=== PATIENT | female | born 1975 | race Caucasian/White ===

== ENCOUNTER → 2017-11-13 | Outpatient (CLI) | payer OTHER ==
[~2017-11-13] MED LIST: CLOB-65 EXT; FLUT0.0529; TRMCR2515 TD
--- NOTE | 2017-11-13 13:51 | DIAGNOSTIC IMAGING REPORT ---
R VENOUS DOPP LOWER EXT UNILAT CLINICAL HISTORY: R LEG EDEMA,R/O DVT pain. Edema. TECHNIQUE: Venous Doppler COMPARISON STUDY: None FINDINGS: Findings of mild chronic superficial thrombophlebitis. The deep venous structures are patent. Compressibility and augmentation characteristics are unremarkable. IMPRESSION: 1. Study is negative for deep venous thrombosis. 2. 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 It may contain grammatical, syntax or spelling errors. Electronically signed by: Atif Milan M.D. 11/13/2017 1:50 PM Dictated Date/Time: 11/13/2017 1:48 PM
[2017-11-13 15:12] LABS: POTASSIUM 3.6 mmol/L (3.5-5.1)
== END | disposition home or self-care (01) ==
LOC: C.ULTR 12:44
PROVIDERS: ATTEND Physician Assistant
DX: I80.01 Phlebitis and thrombophlebitis of superficial vessels of right lower extremity (principal); R60.0 Localized edema

== ENCOUNTER 2017-12-02 00:47 | Observation (INO) | payer OTHER ==
[~2017-12-02] VITALS: Ht 162.6 cm; Wt 108.6 kg
[2017-12-02] MEDS ORDERED: SODIUM CHLORIDE 0.9% 1000ML 1,000 ML, SODIUM CHLORIDE 0.9% 1000ML 1,000 ML IV ONE (01:15)
[2017-12-02] MEDS ORDERED: OPTIRAY 320 IV PRN (01:30)
[2017-12-02 01:33] LABS: BASO % 0.6 %; BASO ABS # 0.06 K/uL (0-0.2); EOS % 1.3 %; EOS ABS # 0.12 K/uL (0-0.5); HEMATOCRIT 39.1 % (37-47); HEMOGLOBIN 13.8 g/dL (12.0-16.0); IG# 0.02 K/uL (0.00-0.02); LYMPH % 38.9 %; LYMPH ABS # 3.61 K/uL (1.2-3.4); MEAN CELL VOLUME 85.2 fL (80-100); MEAN CORPUSCULAR HEMOGLOBIN 30.1 pg (25-34); MEAN CORPUSCULAR HGB CONC 35.3 g/dl (32-36); MEAN PLATELET VOLUME 11.1 fL (7.4-10.4); MONO ABS # 0.65 K/uL (0.11-0.59); NEUT ABS # 4.81 K/uL (1.4-6.5); PLATELET COUNT 273 K/uL (130-400); RED CELL DISTRIBUTION WIDTH CV 13.3 % (11.5-14.5); RED CELL DISTRIBUTION WIDTH SD 41.3 fL (36.4-46.3); WHITE BLOOD COUNT 9.27 K/uL (4.8-10.8)
[2017-12-02 01:45] LABS: PTT PATIENT 24.7 SECONDS (21.0-31.0)
[2017-12-02 02:02] LABS: ALBUMIN 3.9 gm/dl (3.4-5.0); CALCIUM 8.8 mg/dl (8.5-10.1); CREATININE 0.79 mg/dl (0.60-1.20); POTASSIUM 3.3 mmol/L (3.5-5.1); TOTAL PROTEIN 7.7 gm/dl (6.4-8.2)
[2017-12-02] MEDS ORDERED: POTASSIUM CHLR 10 MEQ / WTR 100 ML IV STA (02:45)
[2017-12-02] MEDS ORDERED: POTASSIUM ACETATE INJ 10 MEQ in SODIUM CHLORIDE 0.9% 100ML 100 ML IV ONE (02:45)
[2017-12-02] MEDS ORDERED: POTASSIUM CHLORIDE 20 MEQ TABCR PO STA (03:28)
[2017-12-02] MEDS ORDERED: TRAMADOL HCL 50 MG TAB PO PRN (05:30)
[2017-12-02] MEDS ORDERED: LORAZEPAM 2 MG/ML 1 ML VIAL IV PRN (05:30)
[2017-12-02] MEDS ORDERED: MoRPHine SULFATE 4 MG/ML 1 ML CARP\\VIAL IV PRN (05:30)
[2017-12-02] MEDS ORDERED: PROCHLORPERAZINE INJ 5 MG in SYRINGE 4 ML IV PRN (05:30)
[2017-12-02 06:08] VITALS: BP 122/69; PULSE 87; TEMP 36.8; O2SAT 98; Ht 162.6 cm; Wt 108.6 kg
[2017-12-02] MEDS ORDERED: IV FLUIDS COMPLETED PRN (06:15)
--- NOTE | 2017-12-02 06:22 | HISTORY & PHYSICAL EXAMINATION ---
DATE OF ADMISSION: 12/02/2017 PRIMARY CARE PHYSICIAN: Dr. Kerr. CHIEF COMPLAINT: Chest discomfort. HISTORY OF PRESENT ILLNESS: History obtained from patient and records. Medical history significant for cervical dysplasia as per records and migraine. 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 She was not feeling well while driving, palpitations, some chest discomfort described as burning, cannot take a deep breath. No cough. Denies excessive coffee intake. Bigeminy noted on the monitor at the ER. Patient given extra potassium for hypokalemia. About to send home when she had another distressing episode coinciding with bigeminy on the monitor. MEDICAL HISTORY: As above. February 2017 stress test negative for evidence of ischemia, EF 60%. SURGICAL HISTORY: Appendectomy, cholecystectomy, tonsillectomy, vaginal sling procedure. MEDICATIONS: Home medications are none. ALLERGIES: No drug allergies. FAMILY HISTORY: Hypertension. PERSONAL/SOCIAL HISTORY: Nonsmoker. No chronic intake of alcoholic beverages. RN. REVIEW OF SYSTEMS: As per HPI, all 10 systems reviewed. All other ROS negative. PHYSICAL EXAMINATION: VITAL SIGNS: Blood pressure was noted to be 135/102, pulse rate 87, RR 18, temperature 36.8, saturations 100% on room air. GENERAL: She is slightly anxious and obese, in no acute respiratory distress. SKIN: Normal color, warm. HEENT: Velva palpebral conjunctivae. No ptosis. Dry oral mucosa. NECK: Short, supple. CHEST: Clear to auscultation. No tenderness. HEART: Regular rate and rhythm, no murmur. ABDOMEN: Some distention, nontender. EXTREMITIES: Minimal LE edema, no tenderness. No other gross deformities. NEUROLOGIC: Coherent, no facial asymmetry , no gross focality. LABORATORY DATA: Hemoglobin 13.8, hematocrit 39.4, white cell count 9.27, platelets 273. Sodium 138, potassium 3.2, chloride 105, CO2 of 25, BUN 12, creatinine 0.7, glucose 100. Troponin noted to be x2 negative. UA Trace ketones. CT of chest initial study negative clot. EKG as per my interpretation, normal sinus rhythm, PVCs.1. ASSESSMENT: Palpitations secondary to symptomatic PVCs "Burning" chest discomfort ? GERD Hypokalemia contributory to arrhythmia. PLAN: Observation PCU low dose beta constanza to suppress ectopy Replace potassium. 2D echo. Cardio consult for symptomatic PVCs. PPI trial for possible GERD DVT Prophylaxis: Lovenox subcu. Full code. MTDD
[2017-12-02] MEDS ORDERED: NSS + 20MEQ KCL 1000ML 1,000 ML IV ONE (06:30)
--- NOTE | 2017-12-02 07:05 | DIAGNOSTIC IMAGING REPORT ---
CT ANGIOGRAPHY OF THE CHEST, PULMONARY EMBOLUS PROTOCOL CLINICAL HISTORY: Chest pain. Palpitations. Shortness of breath. COMPARISON STUDY: Chest radiograph May 27, 2013. TECHNIQUE: Following IV administration of 93 mL of Optiray-320, helical axial images of the chest were obtained utilizing the pulmonary embolus protocol. Maximal intensity projections and sagittal and coronal reformats were viewed on an independent 3D workstation. IV contrast was administered without complication. A dose lowering technique was utilized adhering to the principles of ALARA. CT DOSE: 618.77 mGy.cm FINDINGS: No pulmonary emboli are identified. There is no evidence of thoracic aortic dissection. The size of the heart is normal. There is no pericardial effusion. No enlarged axillary, mediastinal or hilar lymph nodes are present. Central airways are patent. There is no consolidation to suggest pneumonia. No pneumothorax or pleural effusion is noted. Bony thorax is unremarkable. Gallbladder is surgically absent. IMPRESSION: 1. No pulmonary emboli identified. 2. No acute intrathoracic findings. Electronically signed by: Anthony Camacho M.D. 12/02/2017 7:04 AM Dictated Date/Time: 12/02/2017 6:59 AM
--- NOTE | 2017-12-02 07:11 | DIAGNOSTIC IMAGING REPORT ---
ULTRASOUND RIGHT LOWER EXTREMITY VENOUS CLINICAL HISTORY: Right leg swelling. COMPARISON STUDY: Right lower extremity venous ultrasound dated 11/13/2017. TECHNIQUE: Real-time, grayscale, and color Doppler sonography of the deep veins of the right lower extremity was performed from the inguinal crease to the calf. Compression and augmentation were utilized. FINDINGS: There is no sonographic evidence of deep venous thrombosis identified in the right lower extremity. The common femoral, superficial femoral, and popliteal veins are patent and normally compressible. Trace chronic superficial venous thrombus is again seen in the greater saphenous vein. The greater saphenous vein and the profunda femoris vein at the junction with the common femoral vein are otherwise clear. The visualized calf veins are patent. IMPRESSION: 1. There is no sonographic evidence of deep venous thrombosis identified in the right lower extremity. 2. Trace chronic superficial venous thrombus within the greater saphenous vein is unchanged from previous. Electronically signed by: Yovani Christianson M.D. 12/02/2017 7:10 AM Dictated Date/Time: 12/02/2017 7:08 AM
[2017-12-02 07:30] VITALS: BP 111/68; PULSE 80; TEMP 37; O2SAT 97
[2017-12-02] MEDS ORDERED: PANTOprazole SOD 40 MG TAB PO SCH (09:00)
[2017-12-02] MEDS ORDERED: ENOXAPARIN 40 MG/0.4 ML SYR SC SCH (09:00)
[2017-12-02] MEDS ORDERED: PERFLUTREN LIPID MICROSPHERE (DEFINITY) IV ONE (09:31)
--- NOTE | 2017-12-02 10:07 | Cardiology Consultation ---
Cardiology Consultation Date of Consultation: December 02, 2017 Requesting Physician: Dr. Awad Attending Survey Workers Supervisor: Dr. 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 She has no significant past medical history and takes no medications on a regular basis. Last night when driving herself to work she noted sudden onset palpitations with associated SOB and warm flushing sensation within her chest. When she got to work and walked across the parking lot, she noted unusual SOB/dyspnea. No chest pain reported. She started her shift but continued to feel "off" and had trouble catching her breath. She felt her pulse was irregular and mildly tachycardic. Due to ongoing symptoms and feeling poorly, she was evaluated by coworkers in the ER. EKG revealed NSR with PVC's. 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 Labs completed which demonstrated mild hypothyroidism (new), and hypokalemia. Potassium was supplemented. She was started on low dose atenolol to suppress PVC 's. Cardiac markers were negative. She underwent CT scan of the chest which was negative for PE. She recently was evaluated by PCP office at [facility] for worsening LE edema. Diagnosed with superficial thrombophlebitis. Taking NSAIDS and wearing compression stockings which has aided her symptoms. She denies history of palpitations, arrhythmias, murmur, or history of cardiac issues. She had a stress echo for atypical chest pain in 2014 which was negative for inducible ischemia. At time of consult, patient resting in bed comfortably. Currently asymptomatic. No PVC's on vegetable farmworker currently. Potassium infusing. No chest pain or SOB. No dizziness, syncope or near syncope. No orthopnea, PND or edema. Compression stockings in place. 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 No recent exertional chest pain or SOB noted. No excessive caffeine intake. No tobacco abuse. Rare alcohol use. (Awa Pinedo PA-C) Past Medical/Surgical History Problem List: Medical Problems: 1. Migraines 2. Obesity Surgical History: 1. Appendectomy 2. tubal ligation 3. lap ephraim 4. 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 Head: The patient denies headache and prior head trauma. Cardiovascular: The patient denies chest pain or chest discomfort, dyspnea on exertion, palpitations, PND, orthopnea, edema, spontaneous shortness of breath, syncope and near syncope. Pulmonary: The patient denies cough, wheeze, pleurisy, hemoptysis, sputum, and excessive snoring. Gastrointestinal: The patient denies nausea, vomiting, diarrhea, constipation, bloating, hematemesis, hematochezia, and abdominal pain. Skin: The patient denies diaphoresis and rash. Musculoskeletal: The patient denies joint pain, joint swelling, myalgia, back pain, neck pain and prior injuries. Neurological: The patient denies prior stroke and seizures (Awa Pinedo PA-C) Allergies Coded Allergies: No Known Allergies (Verified , 12/02/17) Medications Reported Home Medications Medications Dose Route/Sig Max Daily Dose Days Date Category No Active Prescriptions or Reported Medications Rx (Awa Pinedo PA-C) Physical Exam Vital Signs (Last 8hrs): Last 8 Hrs Date Time Temp Pulse Resp B/P (MAP) Pulse Ox O2 Delivery O2 Flow Rate FiO2 12/02/17 07:30 Room Air 12/02/17 06:08 36.8 87 16 122/69 98 Room Air 12/02/17 05:37 85 18 129/50 100 Room Air 12/02/17 05:01 80 18 119/74 100 Room Air 12/02/17 04:56 80 12/02/17 03:57 77 18 118/72 99 Room Air 12/02/17 03:03 76 21 110/70 100 Room Air 12/02/17 02:39 71 18 118/67 12/02/17 02:01 88 17 100/69 99 Room Air 12/02/17 01:31 75 24 118/76 100 Room Air 12/02/17 01:08 78 12/02/17 01:00 98 16 126/81 100 Room Air 12/02/17 00:52 88 12/02/17 00:50 36.8 87 18 135/102 100 Room Air 12/02/17 00:50 Room Air 12/02/17 00:48 77 General Appearance: Alert and Oriented x3. NAD. Head: Normocephalic Atraumatic. Eyes: PERRLA, EOMI, conjunctiva and sclera clear Neck: Supple. No carotid bruits noted. No JVD. No HJD. Respiratory: Breath sounds clear to auscultation bilaterally. No w/r/r. Cardiovascular: Reg rate and rhythm. S1 and S2 noted. No murmurs, rubs, gallops. PMI non displace. Abdomen: Normal bowel sounds, soft nontender. no abdominal bruits. Extremities: No edema, no clubbing or cyanosis. distal pulses 2/4 bilaterally. Neuro: No focal deficits. Psychiatric: Normal affect. (Awa Pinedo, JOSELINE) Data Last 24 Hours Test 12/02/17 01:15 12/02/17 01:27 12/02/17 01:30 12/02/17 03:01 White Blood Count 9.27 K/uL Red Blood Count 4.59 M/uL Hemoglobin 13.8 g/dL Hematocrit 39.1 % Mean Corpuscular Volume 85.2 fL Mean Corpuscular Hemoglobin 30.1 pg Mean Corpuscular Hemoglobin Concent 35.3 g/dl Platelet Count 273 K/uL Mean Platelet Volume 11.1 fL Neutrophils (%) (Auto) 52.0 % Lymphocytes (%) (Auto) 38.9 % Monocytes (%) (Auto) 7.0 % Eosinophils (%) (Auto) 1.3 % Basophils (%) (Auto) 0.6 % Neutrophils # (Auto) 4.81 K/uL Lymphocytes # (Auto) 3.61 K/uL Monocytes # (Auto) 0.65 K/uL Eosinophils # (Auto) 0.12 K/uL Basophils # (Auto) 0.06 K/uL RDW Standard Deviation 41.3 fL RDW Coefficient of Variation 13.3 % Immature Granulocyte % (Auto) 0.2 % Immature Granulocyte # (Auto) 0.02 K/uL Prothrombin Time 10.4 SECONDS Prothromb Time International Ratio 1.0 Activated Partial Thromboplast Time 24.7 SECONDS Partial Thromboplastin Ratio 1.0 Sodium Level 138 mmol/L Potassium Level 3.3 mmol/L Chloride Level 105 mmol/L Carbon Dioxide Level 25 mmol/L Anion Gap 8.0 mmol/L Blood Urea Nitrogen 12 mg/dl Creatinine 0.79 mg/dl Est Creatinine Clear Calc Drug Dose 113.2 ml/min Estimated GFR () 108.5 Estimated GFR (Non- 93.6 BUN/Creatinine Ratio 15.5 Random Glucose 100 mg/dl Calcium Level 8.8 mg/dl Magnesium Level 2.0 mg/dl Total Bilirubin 0.3 mg/dl Aspartate Amino Transf (AST/SGOT) 19 U/L Alanine Aminotransferase (ALT/SGPT) 41 U/L Alkaline Phosphatase 74 U/L Total Protein 7.7 gm/dl Albumin 3.9 gm/dl Globulin 3.8 gm/dl Albumin/Globulin Ratio 1.0 Lipase 109 U/L Thyroid Stimulating Hormone (TSH) 6.350 uIu/ml Free Thyroxine 1.36 ng/dl Free Triiodothyronine 3.52 pg/ml Lyme Disease IgG Antibody NEG Lyme Disease IgM Antibody NEG Bedside Troponin I < 0.030 ng/ml < 0.030 ng/ml Urine Color YELLOW Urine Appearance CLEAR Urine pH 6.0 Urine Specific [place] 1.015 Urine Protein NEG Urine Glucose (UA) NEG Urine Ketones TRACE Urine Occult Blood NEG Urine Nitrite NEG Urine Bilirubin NEG Urine Urobilinogen NEG Urine Leukocyte Esterase NEG Test 12/02/17 05:20 Urine Test NEG Imaging: Chest CT on admission: IMPRESSION: 1. No pulmonary emboli identified. 2. No acute intrathoracic findings. EKG On arrival to ER Sinus rhythm with sinus arrhythmia with occasional Premature ventricular complexes Possible Left atrial enlargement Low voltage QRS Borderline ECG When compared with ECG of 29-MAY-2013 04:54, Premature ventricular complexes are now Present Repeat EKG demonstrated Sinus rhythm with sinus arrhythmia with occasional Premature ventricular complexes. Low Voltage QRS. No significant change from previous Telemetry reviewed: NSR with occ PVC and runs of ventricular bigeminy. Prior Data: Exercise Stress Echo report reviewed, dated 02/2015: The primary indication after review was deemed appropriate and the examination was performed. The stress echo is negative for inducible ischemia. No arrhythmias. Hypertensive BP response to exercise. Below average exercise tolerance. At rest, normal LV chamber size and wall thickness. Normal LV systolic function without regional wall motion abnormality, EF 60-65%. Normal diastolic function. No significant valvular pathology. (Awa Pinedo PA-C) Assessment & Plan 1. Symptomatic PVC's 2. Hypokalemia 3. Hypothyroidism PLAN: Continue low dose Atenolol. Supplement potassium. Recheck later today May need to initiate thyroid supplementation Echo ordered to r/o structural heart disease. Pathophysiology, causes, and treatment for PVC's discussed with patient. She is in agreement to this plan. Case to be discussed with Dr. Robles. Further recommendations pending echo and response to beta constanza, potassium (Awa Pinedo PA-C) CARDIOLOGY ATTENDING ADDENDUM: The patient was seen and personally examined. Agree with Awa Pinedo PA-C's findings and plans as documented above with additions as noted below. S: Patient feeling improved. No recent PVCs thus far today on telemetry. Exam: Last Vital Signs Documentation Date Time Temp Pulse Resp B/P (MAP) Pulse Ox O2 Delivery O2 Flow Rate FiO2 12/02/17 07:30 Room Air 12/02/17 07:30 37.0 80 20 111/68 (82) 97 Regular rhythm, no murmurs. Ext: no edema Impression: Symptomatic PVCs, ventricular bigeminy, no structural heart disease on echo with normal LVEF , no valvular heart disease Mild increase in TSH, likely does not warrant medication therapy Mild hypokalemia. Plan: Likely benign PVCs from standpoint of low risk of sudden . Recommend atenolol for symptomatic relief. Repeat K level. Bases on repeat will determine if she need supplementation. Anticipate discharge after potassium lab results are back. (Tommy Robles,D.O.)
--- NOTE | 2017-12-02 10:51 | ECHOCARDIOGRAM REPORT ---
*NOTICE TO RECEIVING DEMOCRAT AGENCY This information is strictly Confidential and protected under [place] law. [place] law prohibits you from making any further disclosure of this information unless further disclosure is expressly permitted by the written consent of the person to whom it pertains or is authorized by law. A general authorization for the release of medical or other information is not sufficient for this purpose. Hospital accepts no responsibility if the information is made available to any other person, INCLUDING THE PATIENT. Interpretation Summary * Name: CASSY TATUM Study Date: 12/02/2017 09:01 AM * Patient Location: [facility] [place]\S\E106\S\1 * : 1975 (M/d/yyyy) Gender: Female Height: 64 in * Age: 42 yrs Ethnicity: CA Weight: 236 lb * Ordering Physician: Miguel Awad * Referring Physician: Self, Referred * Performed By: Mary Hess RDCS * * Reason For Study: Palpitations * BSA: 2.1 m2 * -- Conclusions -- * The left ventricular wall motion is normal. * Left ventricular systolic function is normal. * The qualitative left ventricualr ejection fraction=55% * There is no singificant valvular heart disease. Procedure Details * A complete two-dimensional transthoracic echocardiogram was performed (2D, M-mode, Doppler and color flow Doppler). * The study was technically difficult. * The study was technically difficult, but visualization was adequate with the administration of Definity ultrasound contrast. * There were technical limitations due to patient'sbody habitus * A contrast injection of Definity was performed to improve assessment of LV function. * Contrast was injected into an intravenous site in the left arm. * One vial of Definity ultrasound contrast was diluted in normal saline to a total volume of 10 ml. A total of '2' ml of solution was administered during imaging. * Lot # [id number] of Definity utilized for procedure. * Expiration date 1Apr19. * The attending nurse who injected the contrast agent was QUANG Galvan. Left Ventricle * The left ventricle is normal in size. * There is normal left ventricular wall thickness. * Left ventricular systolic function is normal. * The qualitative left ventricualr ejection fraction=55% * The left ventricular wall motion is normal. Right Ventricle * The right ventricle is normal size. * The right ventricular systolic function is normal as assessed by tricuspid annular plane systolic excursion (TAPSE) (normal >1.5 cm). Atria * The left atrial size is normal. * Right atrial size is normal. * There is no evidence of atrial septal defect, but resolution does not allow assessment for a patent foramen ovale. Mitral Valve * The mitral valve is normal. * There is no mitral valve stenosis. * Significant mitral regurgitation is absent. Tricuspid Valve * The tricuspid valve is normal. * There is no tricuspid stenosis. * Significant tricuspid regurgitation is absent. Aortic Valve * The aortic valve is trileaflet. * Aortic stenosis is absent. * There is no significant aortic regurgitation. Pulmonic Valve * The pulmonary valve is not well seen, but the Doppler examination is normal without significant regurgitation or stenosis. Great Vessels * The aortic root and proximal ascending aorta are normal sized. Pericardium/Pleural * There is no pericardial effusion. Great Vessels * Normal inferior vena cava diameter and respiratory variation suggests normal central venous pressure. Left Ventricular Diastolic Function * Grade I diastolic dysfunction, (abnormal relaxation pattern). MMode 2D Measurements and Calculations IVSd 0.84 cm IVSs 0.90 cm LVIDd 5.7 cm LVIDs 3.9 cm LVPWd 0.79 cm LVPWs 1.2 cm IVS/LVPW 1.1 FS 31.6 % EDV(Teich) 163.2 ml ESV(Teich) 67.3 ml EF(Teich) 58.8 % EDV(cubed) 190.0 ml ESV(cubed) 60.8 ml EF(cubed) 68.0 % % IVS thick 6.6 % % LVPW thick 45.5 % LV mass(C)d 177.9 grams LV mass(C)dI 84.8 grams/m\S\2 LV mass(C)s 128.7 grams LV mass(C)sI 61.3 grams/m\S\2 SV(Teich) 95.9 ml SI(Teich) 45.7 ml/m\S\2 SV(cubed) 129.1 ml SI(cubed) 61.5 ml/m\S\2 Ao root diam 3.0 cm Ao root area 7.3 cm\S\2 ACS 2.3 cm LA dimension 3.5 cm LA/Ao 1.1 LVAd ap4 35.8 cm\S\2 LVLd ap4 8.3 cm EDV(MOD-sp4) 132.0 ml EDV(sp4-el) 130.5 ml LVAs ap4 18.7 cm\S\2 LVLs ap4 6.8 cm ESV(MOD-sp4) 47.7 ml ESV(sp4-el) 44.1 ml EF(MOD-sp4) 63.8 % EF(sp4-el) 66.2 % LVAd ap2 38.4 cm\S\2 LVLd ap2 8.5 cm EDV(MOD-sp2) 152.4 ml EDV(sp2-el) 147.0 ml LVAs ap2 23.3 cm\S\2 LVLs ap2 7.1 cm ESV(MOD-sp2) 68.3 ml ESV(sp2-el) 64.9 ml EF(MOD-sp2) 55.2 % EF(sp2-el) 55.8 % LVLd %diff 2.3 % EDV(MOD-bp) 143.3 ml LVLs %diff 4.5 % ESV(MOD-bp) 58.2 ml EF(MOD-bp) 59.4 % SV(MOD-sp4) 84.3 ml SI(MOD-sp4) 40.1 ml/m\S\2 SV(MOD-sp2) 84.1 ml SI(MOD-sp2) 40.1 ml/m\S\2 SV(MOD-bp) 85.2 ml SI(MOD-bp) 40.6 ml/m\S\2 SV(sp4-el) 86.4 ml SI(sp4-el) 41.2 ml/m\S\2 SV(sp2-el) 82.0 ml SI(sp2-el) 39.1 ml/m\S\2 Doppler Measurements and Calculations MV E max amrita 90.6 cm/sec MV A max amrita 61.5 cm/sec MV E/A 1.5 MV dec time 0.19 sec Ao V2 max 130.5 cm/sec Ao max PG 6.8 mmHg Ao max PG (full) 2.4 mmHg LV V1 max PG 4.4 mmHg LV V1 max 104.9 cm/sec PA V2 max 72.5 cm/sec PA max PG 2.1 mmHg
[2017-12-02 11:20] VITALS: BP 118/50; PULSE 74; TEMP 36.8; O2SAT 95
--- NOTE | 2017-12-02 12:32 | Discharge Instructions ---
Discharge Instructions Date of Service December 02, 2017. Admission Reason for Admission: Chest Pain, Palpitations Discharge Discharge Diagnosis / Problem: Symptomatic palpitations Discharge Goals Goal(s): Diagnostic testing Activity Recommendations Activity Limitations: resume your previous activity . Instructions / Follow-Up Instructions / Follow-Up Please see Dr. Lopez on December 09 at 11:05 AM for hospital follow up; please call to reschedule if this does not work with your schedule Please expect a call from [employer] regarding scheduling your Cardiology follow up appointment Please be sure to take adequate amounts of PO water and potassium rich foods in your diet. Current Hospital Diet Patient's current hospital diet: Regular Diet Discharge Diet Recommended Diet: Regular Diet Pending Studies Studies pending at discharge: no Medical Emergencies . Who to Call and When: Medical Emergencies: If at any time you feel your situation is an emergency, please call 911 immediately. . Non-Emergent Contact Non-Emergency issues call your: Primary Care Provider, Superintendent [employer] . . "Provider Documentation" section prepared by Edilma Coffey. .
[2017-12-02] MEDS ORDERED: TNR25 PO (12:53)
--- NOTE | 2017-12-02 13:04 | Discharge Summary ---
Discharge Summary Date of Service December 02, 2017. Discharge Summary Admission Date: December 02, 2017 at 05:04 Discharge Date: December 02, 2017 Hospital Course Total time spent on discharge = This includes examination of the patient, discharge planning, medication reconciliation, and communication with other providers.
[2017-12-02 13:11] VITALS: BP 118/50; PULSE 74; TEMP 36.8; O2SAT 95
--- NOTE | 2017-12-03 03:35 | EMERGENCY ROOM VISIT NOTE ---
History First contact with patient: 00:46 Chief Complaint: CARDIAC ASSESSMENT Stated Complaint: CHEST PAIN, PALPITATIONS Nursing Triage Summary: Pt reports around 930pm she started having palpitations. Pt denies chest pain. Reports difficulty breathing and SOB. History of Present Illness The patient is a 42 year old female who presents to the Emergency Room with complaints of palpitations and flushing that began approximately 3 hours prior to arrival. 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 She was on her way to work when she began having an odd sensation in her chest as well as flushing across the front of her chest into her lower neck. The patient had some minimal lightheadedness but had subjective shortness of breath. The patient is otherwise usually healthy and has not had symptoms like this in the past. She has not had recent fever or chills. No abdominal pain, nausea, or vomiting. She does report having some intermittent swelling of her right leg but has had ultrasound in the past month that showed a superficial clot, but no DVT. She does not take control, use drugs, drink excessive caffeine, or utilize alcohol on a regular basis. The patient does have family history of blood clots on both the maternal and paternal side. The patient does not describe a distinct pain, and states that her symptoms are intermittent. She rates her overall discomfort a 1/10 currently, however it is an 8/10 when this occurs. She does follow with [facility] and evidently had a stress test performed in the last 3 years after some exercise-induced chest pain that was reportedly normal. Review of Systems More than 10 systems were reviewed and otherwise negative with the exception of history of present illness. 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) Current/Historical Medications Scheduled Atenolol (Atenolol), 25 MG PO QAM Physical Exam Vital Signs Date Time Temp Pulse Resp B/P (MAP) Pulse Ox O2 Delivery O2 Flow Rate FiO2 12/02/17 05:01 80 18 119/74 100 Room Air 12/02/17 04:56 80 12/02/17 03:57 77 18 118/72 99 Room Air 12/02/17 03:03 76 21 110/70 100 Room Air 12/02/17 02:39 71 18 118/67 12/02/17 02:01 88 17 100/69 99 Room Air 12/02/17 01:31 75 24 118/76 100 Room Air 12/02/17 01:08 78 12/02/17 01:00 98 16 126/81 100 Room Air 12/02/17 00:52 88 12/02/17 00:50 36.8 87 18 135/102 100 Room Air 12/02/17 00:50 Room Air 12/02/17 00:48 77 Physical Exam VITALS: Vitals are noted on the nurse's note and reviewed by myself. Vital signs stable. GENERAL: Well-developed, well-nourished, white female who appears flushed across her upper chest and face. She is cooperative with the examination. HEAD: Normocephalic atraumatic. EARS: External ear normal. External auditory canals clear, tympanic membranes pearly steven without erythema or effusion bilaterally. EYES: Pupils equal round and reactive to light and accommodation. Conjunctivae without injection, sclerae without icterus. Extraocular movements intact. NOSE: Patent, turbinates without inflammation or discharge. MOUTH: Mucous membranes moist. Tonsils are not enlarged. Pharynx without erythema, blood, or exudate. Uvula midline. Airway patent. NECK: Supple without nuchal rigidity. No lymphadenopathy. No thyromegaly. Cervical spine is nontender. HEART: Regular rate and rhythm without murmurs gallops or rubs. LUNGS: Clear to auscultation bilaterally without wheezes, rales or rhonchi. No retractions or accessory muscle use. ABDOMEN: Positive normal bowel sounds x 4. Soft, nontender, without masses or organomegaly. No guarding or rebound tenderness. Medical Decision & Procedures ER Provider Diagnostic Interpretation: CT ANGIOGRAPHY OF THE CHEST, PULMONARY EMBOLUS PROTOCOL CLINICAL HISTORY: Chest pain. Palpitations. Shortness of breath. COMPARISON STUDY: Chest radiograph May 27, 2013. TECHNIQUE: Following IV administration of 93 mL of Optiray-320, helical axial images of the chest were obtained utilizing the pulmonary embolus protocol. Maximal intensity projections and sagittal and coronal reformats were viewed on an independent 3D workstation. IV contrast was administered without complication. A dose lowering technique was utilized adhering to the principles of ALARA. CT DOSE: 618.77 mGy.cm FINDINGS: No pulmonary emboli are identified. There is no evidence of thoracic aortic dissection. The size of the heart is normal. There is no pericardial effusion. No enlarged axillary, mediastinal or hilar lymph nodes are present. Central airways are patent. There is no consolidation to suggest pneumonia. No pneumothorax or pleural effusion is noted. Bony thorax is unremarkable. Gallbladder is surgically absent. IMPRESSION: 1. No pulmonary emboli identified. 2. No acute intrathoracic findings. ULTRASOUND RIGHT LOWER EXTREMITY VENOUS CLINICAL HISTORY: Right leg swelling. COMPARISON STUDY: Right lower extremity venous ultrasound dated 11/13/2017. TECHNIQUE: Real-time, grayscale, and color Doppler sonography of the deep veins of the right lower extremity was performed from the inguinal crease to the calf. Compression and augmentation were utilized. FINDINGS: There is no sonographic evidence of deep venous thrombosis identified in the right lower extremity. The common femoral, superficial femoral, and popliteal veins are patent and normally compressible. Trace chronic superficial venous thrombus is again seen in the greater saphenous vein. The greater saphenous vein and the profunda femoris vein at the junction with the common femoral vein are otherwise clear. The visualized calf veins are patent. IMPRESSION: 1. There is no sonographic evidence of deep venous thrombosis identified in the right lower extremity. 2. Trace chronic superficial venous thrombus within the greater saphenous vein is unchanged from previous. Laboratory Results 12/02/17 01:15 Red Blood Count 4.59, Mean Corpuscular Volume 85.2, Mean Corpuscular Hemoglobin 30.1, Mean Corpuscular Hemoglobin Concent 35.3, Mean Platelet Volume 11.1, Neutrophils (%) (Auto) 52.0, Lymphocytes (%) (Auto) 38.9, Monocytes (%) (Auto) 7.0, Eosinophils (%) (Auto) 1.3, Basophils (%) (Auto) 0.6, Neutrophils # (Auto) 4.81, Lymphocytes # (Auto) 3.61, Monocytes # (Auto) 0.65, Eosinophils # (Auto) 0.12, Basophils # (Auto) 0.06 12/02/17 01:15 Test 12/02/17 01:15 12/02/17 01:30 12/02/17 03:01 White Blood Count 9.27 K/uL (4.8-10.8) Red Blood Count 4.59 M/uL (4.2-5.4) Hemoglobin 13.8 g/dL (12.0-16.0) Hematocrit 39.1 % (37-47) Mean Corpuscular Volume 85.2 fL (80-100) Mean Corpuscular Hemoglobin 30.1 pg (25-34) Mean Corpuscular Hemoglobin Concent 35.3 g/dl (32-36) Platelet Count 273 K/uL (130-400) Mean Platelet Volume 11.1 fL (7.4-10.4) Neutrophils (%) (Auto) 52.0 % Lymphocytes (%) (Auto) 38.9 % Monocytes (%) (Auto) 7.0 % Eosinophils (%) (Auto) 1.3 % Basophils (%) (Auto) 0.6 % Neutrophils # (Auto) 4.81 K/uL (1.4-6.5) Lymphocytes # (Auto) 3.61 K/uL (1.2-3.4) Monocytes # (Auto) 0.65 K/uL (0.11-0.59) Eosinophils # (Auto) 0.12 K/uL (0-0.5) Basophils # (Auto) 0.06 K/uL (0-0.2) RDW Standard Deviation 41.3 fL (36.4-46.3) RDW Coefficient of Variation 13.3 % (11.5-14.5) Immature Granulocyte % (Auto) 0.2 % Immature Granulocyte # (Auto) 0.02 K/uL (0.00-0.02) Prothrombin Time 10.4 SECONDS (9.0-12.0) Prothromb Time International Ratio 1.0 (0.9-1.1) Activated Partial Thromboplast Time 24.7 SECONDS (21.0-31.0) Partial Thromboplastin Ratio 1.0 Anion Gap 8.0 mmol/L (3-11) Est Creatinine Clear Calc Drug Dose 113.2 ml/min Estimated GFR () 108.5 Estimated GFR (Non- 93.6 BUN/Creatinine Ratio 15.5 (10-20) Calcium Level 8.8 mg/dl (8.5-10.1) Magnesium Level 2.0 mg/dl (1.8-2.4) Total Bilirubin 0.3 mg/dl (0.2-1) Aspartate Amino Transf (AST/SGOT) 19 U/L (15-37) Alanine Aminotransferase (ALT/SGPT) 41 U/L (12-78) Alkaline Phosphatase 74 U/L (45-117) Total Protein 7.7 gm/dl (6.4-8.2) Albumin 3.9 gm/dl (3.4-5.0) Globulin 3.8 gm/dl (2.5-4.0) Albumin/Globulin Ratio 1.0 (0.9-2) Lipase 109 U/L (73-393) Thyroid Stimulating Hormone (TSH) 6.350 uIu/ml (0.300-4.500) Free Thyroxine 1.36 ng/dl (0.80-1.60) Free Triiodothyronine 3.52 pg/ml (2.30-4.20) Lyme Disease IgG Antibody NEG (NEG) Lyme Disease IgM Antibody NEG (NEG) Urine Color YELLOW Urine Appearance CLEAR (CLEAR) Urine pH 6.0 (4.5-7.5) Urine Specific [place] 1.015 (1.000-1.030) Urine Protein NEG (NEG) Urine Glucose (UA) NEG (NEG) Urine Ketones TRACE (NEG) Urine Occult Blood NEG (NEG) Urine Nitrite NEG (NEG) Urine Bilirubin NEG (NEG) Urine Urobilinogen NEG (NEG) Urine Leukocyte Esterase NEG (NEG) Bedside Troponin I < 0.030 ng/ml (0-0.045) Medications Administered Medications (Trade) Dose Ordered Sig/[place] Route Start Time Stop Time Status Last Admin Dose Admin Sodium Chloride/ Sodium Chloride 2,000 ml @ 999 mls/hr Q2H1M ONCE IV 12/02/17 01:15 12/02/17 03:15 DC 12/02/17 01:29 999 MLS/HR Potassium Chloride 100 ml @ 100 mls/hr NOW STAT IV 12/02/17 02:45 12/02/17 03:44 DC 12/02/17 02:57 100 MLS/HR Potassium Chloride (Klor-Con Tab) 60 meq NOW STAT PO 12/02/17 03:28 12/02/17 03:30 DC 12/02/17 04:10 60 MEQ ECG Per My Interpretation Change: EKG#1 Sinus rhythm with sinus arrhythmia with occasional Premature ventricular complexes @74 bpm Possible Left atrial enlargement Low voltage QRS Borderline ECG When compared with ECG of 29-MAY-2013 04:54, Premature ventricular complexes are now Present EKG#2 Sinus rhythm with sinus arrhythmia with occasional Premature ventricular complexes @71bpm Right axis deviation Low voltage QRS Nonspecific T wave abnormality Abnormal ECG When compared with ECG of 02-DEC-2017 00:49, (unconfirmed) QRS axis Shifted right Nonspecific T wave abnormality, worse in Inferior leads Inverted T waves have replaced nonspecific T wave abnormality in Anterior leads ED Course Physical exam and history were performed. Nursing notes, EMR, and Medication List were personally reviewed. Patient appears to have palpitations and a flushing sensation in her chest. The patient is well known to me and does not appear well on presentation. EKG was performed and is as above. IV access was established and labs were obtained. The patient was hydrated and medicated as above. She was placed on cafeteria monitor. She does have a known superficial blood clot in the right lower extremity and repeat ultrasound was performed. Because of the acute onset of her symptoms and palpitations I did elect perform a CT scan of her chest. The case was discussed with my attending, Dr. Schofield, who remain closely involved in patient care decision-making. The patient's blood work is as above and was reviewed. She does not have a significantly elevated, gross anemia, or bandemia. Her potassium is low 3.3 and this was repleted through her IV. Troponin 1 is negative. A repeat EKG was performed, and is as above. Lipase and transaminases are not diagnostic. Her TSH is slightly elevated at greater than 6. Lyme is negative. Her remaining labs are fairly unremarkable. The patient had several runs of ventricular bigeminy on the cafeteria monitor. She also had a few runs of ventricular trigeminy. 1 of these episodes I was able to identify the cafeteria monitor and immediately evaluate the patient, who was very symptomatic, lightheaded, and nauseated. I discussed the case with the on-call hospitalist, Dr. Awad, who also recommended providing her oral potassium, and she was given 60 mg once here by mouth. The patient's ultrasound does not show any new findings. Her CT angiogram did not show evidence of pulmonary embolism. I discussed options of care with the patient, who is initially hesitant to stay here in the facility. However after her multiple episodes of very symptomatic bigeminy, she agreed that remaining here was a reasonable decision. The case was rediscussed with Dr. Awad, who will evaluate the patient here in the department. Please see his dictation for further patient course and disposition. The chart was completed utilizing [employer] Speech Voice Recognition Software. Grammatical errors, random word insertions, pronoun errors, and incomplete sentences are an occasional consequence of this system due to software limitations, ambient noise, and hardware issues. Any formal questions or concerns about the content, text, or information contained within the body of this dictation should be directly addressed to the provider for clarification. . Medical Decision Differential diagnosis includes, but is not limited to: Myocardial infarction, dysrhythmia, pericarditis, pneumothorax, aortic aneurysm/dissection, DVT/PE, anxiety, GERD, PUD, electrolyte imbalance, thyroid disorder, pneumonia, bronchitis, pancreatitis, and others Impression Primary Impression: Intermittent palpitations Additional Impressions: Ventricular bigeminy seen on cafeteria monitor Low blood potassium Departure Information Dispostion Still a Patient Condition FAIR Prescriptions Atenolol (Atenolol) 25 Mg Tab 25 MG PO QAM, #30 TAB Prov: Edilma Coffey, D.OSenia 12/02/17 Referrals Liliana Kerr D.O. (PCP) Forms IMPORTANT VISIT INFORMATION Patient Instructions My [facility], Atenolol tablets Problem Qualifiers
== END 2017-12-02 13:32 | disposition home or self-care (01) ==
LOC: EDBD 00:47 → C.EDA 00:48 → C.MSICU 05:04 → ENRESERV 05:13
PROVIDERS: ADMIT Internal Medicine; ATTEND Internal Medicine
DX: R00.2 Palpitations (principal); R00.8 Other abnormalities of heart beat; E87.6 Hypokalemia; R07.9 Chest pain, unspecified; I49.3 Ventricular premature depolarization; Z90.89 Acquired absence of other organs; Z90.49 Acquired absence of other specified parts of digestive tract; Z82.49 Family history of ischemic heart disease and other diseases of the circulatory system; E66.9 Obesity, unspecified; F41.9 Anxiety disorder, unspecified; E03.9 Hypothyroidism, unspecified

== ENCOUNTER 2018-09-23 06:29 | Observation (INO) ==
--- NOTE | 2018-09-21 09:50 | Anesthesiology Consultation ---
Date of Service September 21, 2018 Assessment & Plan (1) Encounter for pre-operative examination: Chart Review Chart Review: Acceptable Risk for Surgery and Patient NOT seen in Pre Admission Testing History Surgery Operation Date: 09/23/18 08:00 Proposed Procedures p EP Procedure with Mapping for Ventricular Tachycardia with Anesthesia - Jodi Montero DO Height/Weight Height: 5 ft 4 in Weight: 105.687 kg Allergies Allergy/AdvReac Type Severity Reaction Status Date / Time No Known Allergies Allergy Verified 09/17/18 10:08 Medications Home Medications Medication Instructions Recorded Confirmed Last Taken atenolol 25 mg PO BID 09/17/18 09/17/18 Unknown Past Medical History Medical History Frequent PVCs Kidney stones Morbid obesity Superficial thrombosis of right lower extremity H/O Ventricular bigeminy Past Family History Family History Aunt Family history of diabetes mellitus Grandmother (Paternal) Family history of diabetes mellitus Past Surgical History Surgical History History of appendectomy History of bilateral tubal ligation History of cholecystectomy History of surgery D&E History of surgery BLADDER SLING History of tooth extraction Nausea and vomiting after administration of anesthetic agent Past Anesthesia History 2013 lap ephraim @ [facility]: MAC 3, ETT7.0, DVL x1, atraumatic. Smooth IV induction and intubation. +scop patch. Social History Smoking Status: Never smoker Do You Dip or Chew Tobacco: No Hx Alcohol Use: Yes Alcohol type: beer and wine alcohol intake frequency: holidays/special occasions only Hx Substance Use: No substance use type: does not use Testing Electrocardiogram Date: 12/22/17 Findings: + NSR @ Sinus rhythm at 63bpm with sinus arrhythmia and occasional PVCs, Septal infarct, age undetermined. Stress Test Date: 09/02/18 Type: exercise Resting EF: 55-59% The examination is adequate to evaluate the referral indication. The stress echo is negative for inducible ischemia. Exercise capacity is average. Blood pressure response to exercise was normal. Peak heart rate was mildly attenuated due to medication achieving 79% age-predicted maximum. Patient experienced atypical symptoms, mild tingling and and chest peak workload. PVCs noted at rest. The stress EKG response showed no evidence of ischemia. The left ventricular wall motion is normal at rest and with stress. Left ventricular EF increases normally with stress. Ventricular ectopy present at rest diminished in frequency with exertion. The left ventricular systolic function is normal with no significant valvular disease. Laboratory Results 09/04/18 WBC: 9.94 H/H: 13.1/38.9 PLATELETS: 292 SODIUM: 141 POTASSIUM: 4.2 CHLORIDE: 105 CO2: 27 BUN: 12 CREATININE: 0.7 GLUCOSE: 85
[2018-09-23] MEDS ORDERED: PROMETHAZINE HCL 12.5 MG in SODIUM CHLORIDE 0.9% 50 ML IV PRN (06:55)
[2018-09-23] MEDS ORDERED: HYDROmorphone INJ 1 MG/ML SYRINGE IV PRN (06:55)
[2018-09-23] MEDS ORDERED: ONDANSETRON INJ 2 MG/ML 2 ML VIAL IV PRN (06:55)
[2018-09-23] MEDS ORDERED: ATROPINE SULFATE 0.1 MG/ML 10ML SYR IV PRN (06:55)
[2018-09-23] MEDS ORDERED: ePHEDrine sulfate 50 MG/ML AMP IV PRN (06:55)
[2018-09-23] MEDS ORDERED: fentaNYL citrate 100 MCG/2 ML VIAL IV PRN (06:55)
[2018-09-23] MEDS ORDERED: PHENYLEPHRINE 100MCG/ML 5ML SYR IV PRN (06:55)
[2018-09-23] MEDS ORDERED: DexMEDEtomidine HCL IV 100 MCG/ML VIAL ONE ×2 (06:58→10:25)
[2018-09-23] MEDS ORDERED: PROPOFOL IV EMULSION 10 MG/ML 100 ML VIAL IV ONE (06:59)
[2018-09-23] MEDS ORDERED: fentaNYL citrate 100 MCG/2 ML VIAL ONE (07:28)
[2018-09-23] MEDS ORDERED: MIDAZOLAM HCL 1 MG/ML 2ML VIAL ONE ×3 (07:28→10:28)
--- NOTE | 2018-09-23 07:53 | History & Physical Bridge Note ---
Date of Service September 23, 2018 History & Physical Bridge Note I have examined the patient, reviewed the History & Physical and in the interval since the performance of the History & Physical I have noted the following changes of clinical significance: no changes noted
[2018-09-23] MEDS ORDERED: HEPARIN SOD (PORCINE) 1000 UNIT/ML 10 ML VIAL ONE (08:11)
[2018-09-23] MEDS ORDERED: DEXAMETHASONE SOD INJ 4 MG/ML VIAL ONE (08:41)
[2018-09-23] MEDS ORDERED: ONDANSETRON INJ 2 MG/ML 2 ML VIAL ONE (08:41)
[2018-09-23] MEDS ORDERED: GLYCOPYRROLATE 0.2 MG/ML VIAL ONE (08:41)
[2018-09-23] MEDS ORDERED: ACETAMINOPHEN 325 MG TAB PO PRN (11:09)
--- NOTE | 2018-09-23 11:11 | Operative Report ---
Post Operative Report Pre & Post Diagnosis frequent PVCs Operation Date: 09/23/18 08:00 <No data on this case meets the specified criteria> Procedure Operation Date: 09/23/18 08:00 Actual Procedures p EPS + Ablation +3D Map for VT - Jodi Montero DO Surgeon Jodi Montero, Cloth Washer Back Tender none Estimated Blood Loss 5 Findings Consistent with Post-Op Diagnosis Specimens none Description of Procedure see official report I attest to the content of the Intraoperative Record and any orders documented therein. Any exceptions are noted below.
--- NOTE | 2018-09-23 11:16 | Discharge Summary ---
Date of Service September 23, 2018 Admission HPI Pt presented with fatigue and palpitations due to PVCs; underwent EPS with PVC ablation-no complications; monitored overnight and discharged home Admission Exam Per Admitting Provider aaox3, NAD NC/AT, EOMI Supple No JVD Nrl S1/S2, No murmur; occasional PVC CTA b/l no w/r/r soft nt/nd no LE edema b/l skin intact no focal deficits Principal Diagnosis Principal Diagnosis PVC s/p ablation Discharge Exam aaox3, NAD NC/AT, EOMI Supple No JVD Nrl S1/S2, No murmur CTA b/l no w/r/r soft nt/nd no LE edema b/l skin intact no focal deficits rigth groin no hematoma Discharge Data Allergies Allergy/AdvReac Type Severity Reaction Status Date / Time No Known Allergies Allergy Verified 09/23/18 06:53 Procedures Performed Operation Date: 09/23/18 08:00 Actual Procedures p EPS + Ablation +3D Map for VT - Jodi Montero DO Hospital Course (1) PVC (premature ventricular contraction): Total Time Total Time Spent Total Time Spent (In Minutes): 30 Total Time Includes: Examination of the Patient, Discharge Planning, Medication Reconciliation and Other Discharge Plan Discharge Items Patient Disposition: Home - Self-Care Reason For Visit: Premature Ventricular Contractions Discharge Diagnosis: pvc s/p pvc ablation Condition: Good Discharge Goals: Improve function Activity: As commented below Activity Comment: do not lift more than 10 pounds for 1 week Lifting: No more than 10 pounds Bathing: No limitations Driving/Machine Use: Resume 1 day after discharge Non-emergency contact: Brush Worker Call non-emergency contact if: you have any medication questions Follow-up/Referrals: Liliana Kerr [Primary Care Provider] - Diet: Heart Healthy Addtl Provider Instructions: f/u with Dr. Montero in [facility] in 1 month Prescriptions: Discontinued atenolol 25 mg Tablet 25 mg PO BID RF: 0 Stand-Alone Forms: [employer] Discharge Orders: Discharge Order (Routine); Ordered 09/24/18 Ordered By: Jodi Montero Admission Data Admit Date/Time: 09/23/18 11:09 Attending Provider: Jodi Montero Admit Provider: Jodi Montero Primary Care Provider: Liliana Kerr Service: Telemetry
--- NOTE | 2018-09-23 12:51 | Anesthesiology Progress Note ---
Date of Service September 23, 2018 Anesthesia Post Procedure Vital Signs Vital Signs: Temp Pulse Resp BP Pulse Ox 09/23/18 12:00 36.5 C 58 L 16 91/54 L 94 09/23/18 11:45 36.5 C 64 16 108/59 L 94 Notes Mental Status: alert / awake / arousable Patient Amnestic to Procedure: Yes Nausea / Vomiting: adequately controlled Pain: adequately controlled Airway Patency, RR, SpO2: stable & adequate BP & HR: stable & adequate Hydration State: stable & adequate Anesthetic Complications: no major complications apparent
[2018-09-23] MEDS ORDERED: MoRPHine SULFATE 2 MG/ML CARP IV PRN (15:28)
[2018-09-23] MEDS ORDERED: OXYCODONE/ACETAMINOPHEN 5mg/325mg TAB PO PRN (15:30)
[2018-09-23] MEDS: IBUPROFEN 600 MG TAB PO PRN ×2 (17:27→23:17)
[2018-09-24 03:46] VITALS: TEMP 98.2
[2018-09-24 07:10] VITALS: O2SAT 97
[2018-09-24] MEDS: IBUPROFEN 600 MG TAB PO PRN (07:20)
--- NOTE | 2018-09-24 08:14 | Anesthesiology Progress Note ---
Date of Service September 24, 2018 Anesthesia Post Procedure Vital Signs Vital Signs: Temp Pulse Pulse Pulse Resp BP BP 09/24/18 07:09 36.8 C 77 18 104/61 09/24/18 04:46 67 09/24/18 03:00 36.8 C 77 16 100/54 L 09/23/18 23:13 36.9 C 63 15 128/59 L 09/23/18 23:00 63 09/23/18 19:30 36.6 C 84 18 123/70 09/23/18 16:00 59 L 09/23/18 15:24 48 L 09/23/18 15:21 58 L 121/67 09/23/18 14:45 36.4 C L 53 L 56 L 20 118/64 09/23/18 14:43 36.4 C L 52 L 18 118/64 09/23/18 14:30 51 L 09/23/18 14:15 52 L 09/23/18 14:00 53 L 09/23/18 13:45 52 L 09/23/18 13:30 51 L 09/23/18 13:15 69 09/23/18 13:00 52 L 09/23/18 12:45 65 09/23/18 12:30 59 L 09/23/18 12:15 60 09/23/18 12:00 36.5 C 57 L 58 L 16 91/54 L 09/23/18 11:50 62 09/23/18 11:45 36.5 C 64 16 108/59 L Pulse Ox 09/24/18 07:09 97 09/24/18 04:46 09/24/18 03:00 94 09/23/18 23:13 95 09/23/18 23:00 09/23/18 19:30 96 09/23/18 16:00 09/23/18 15:24 09/23/18 15:21 96 09/23/18 14:45 97 09/23/18 14:43 96 09/23/18 14:30 09/23/18 14:15 09/23/18 14:00 09/23/18 13:45 09/23/18 13:30 09/23/18 13:15 09/23/18 13:00 09/23/18 12:45 09/23/18 12:30 09/23/18 12:15 09/23/18 12:00 94 09/23/18 11:50 09/23/18 11:45 94 Pain Intensity Left Chest: Pain Intensity: 1 Notes Mental Status: alert / awake / arousable and participated in evaluation Nausea / Vomiting: adequately controlled Pain: adequately controlled Airway Patency, RR, SpO2: stable & adequate BP & HR: stable & adequate Hydration State: stable & adequate
[2018-09-24 08:38] VITALS: BP 118/64; PULSE 67
--- NOTE | 2018-09-25 09:27 | Operative Report ---
Post Operative Report Pre & Post Diagnosis Operation Date: 09/23/18 08:00 <No data on this case meets the specified criteria> Procedure Operation Date: 09/23/18 08:00 Actual Procedures p EPS + Ablation +3D Map for VT - Jodi Montero DO Surgeon Jodi Montero, Jig Mill Operator none Estimated Blood Loss 5 I attest to the content of the Intraoperative Record and any orders documented therein. Any exceptions are noted below.
--- NOTE | 2018-09-25 23:32 | Operative Report ---
DATE OF OPERATION: 09/23/2018 PREOPERATIVE DIAGNOSES: PVCs and palpitation. 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 PROCEDURE: Electrophysiology study, 3D mapping of PVCs in the right ventricular outflow tract, radiofrequency ablation of the PVCs. SURGEON: Jodi Montero DO. DIRECTOR OF LOSS PREVENTION: None. ANESTHESIA: Monitored anesthetic care administered via anesthesiology. Please refer to their notes for complete details, but it was a total of 6 mg of Versed, 100 mcg of fentanyl, 780 mg of propofol, 400 mcg of Precedex, 0.4 mg of Robinul, 8 mg of Decadron, and 4 mg of Zofran. INTRAVENOUS FLUIDS: 1 liter. URINE OUTPUT: Not applicable. SPECIMENS: None. FINDINGS: See below. DRAINS: None. BLOOD LOSS: Less than 5 mL. INDICATIONS: This is a 43-year-old female with a past medical history for symptomatic recurrent frequent PVCs and palpitations. She has not been tolerating the atenolol and so wished to have an electrophysiology study. CONSENT: Consent was obtained prior to the patient going into the electrophysiology lab. The patient was informed of the risks, benefits, and alternatives to the procedure. Risks include but not limited to sudden cardiac , cardiac arrhythmia, cerebrovascular accident, myocardial infarction, injury to the blood vessels, chamber of the heart or the stockbridge electrical system where she would need a permanent pacemaker, bleeding, and infection. The patient understood these risks and agreed to proceed as planned. Informed consent was obtained. DESCRIPTION OF THE PROCEDURE: The patient was brought into the electrophysiology lab in a fasting state. The patient was connected to continuous cardiac monitoring. A timeout was performed to ensure patient identity and procedure correctly. The patient was prepped and draped over the bilateral groins in normal surgical standard fashion. Monitored anesthetic care was given throughout the procedure for patient's comfort level via anesthesiology. A 10 mL of 1% lidocaine were given in the right femoral groin. Then using the modified Seldinger technique, venous access was obtained of the right femoral vein. An 8.5-Macedonian sheath was inserted without any resistance. The PentaRay was then advanced up into the right ventricular outflow tract and we did some 3D mapping of the PVCs localizing it more to the posterior septal wall. I then switched out to the ablation catheter and did further mapping and I had some good areas in the posterior septal wall where it was negative up to 30 milliseconds pre-QRS. My pace maps were 95% and I had a QS on my unipolar. So we gave a series of radiofrequency castro at 30 forrester in this area. I then pulled the catheter back out into the IVC and was monitoring, but about 15 minutes later, I did start seeing a PVC here and there, so I went back in and I went a little bit more posterior septal and found that the pace map was even better at 98%. It still was pretty QRS with a QS unipolar. So I gave a few more castro at 30 forrester. I then pulled the catheter back into the IVC, waited about 15 minutes. Then I put the catheter up into the high right atrium and I performed electrophysiology study with the following findings: Sinus cycle length 824 milliseconds, MS 128 milliseconds, QRS 378 milliseconds, QT 410 milliseconds. The AV Wenckebach was found to be 400 milliseconds, the AV node ERP was 600/380 and 500/300 and the atrial ERP was 600/290 and 500/290. I then positioned the ablation catheter over the His bundle and measured an AH and HV with the following findings, the AH was 112 milliseconds, the HV was 50 milliseconds. I then positioned the catheter in the right ventricular apex and the RV to determine the RV ERP and it was 600/270 and 400/220. I then removed the catheter back into the IVC and continued to watch for an additional 20 plus minutes. She did not have any PVCs. We then removed the catheter from the body and then used manual compression to establish hemostasis by pulling the 8.5-Macedonian sheath. IMPRESSION: 1. Successful radiofrequency ablation of PVCs originating from the posterior septal region of the right ventricular outflow tract. 2. Normal AV yari function. PLAN: Monitor patient overnight, stop the atenolol. No heavy lifting or squatting for a week. She can follow up in my office in 1 month's time. I attest to the content of the Intraoperative Record and any orders documented therein. Any exception s are noted below.
== END 2018-09-24 09:06 | disposition home or self-care (01) ==
LOC: ASU 06:29 → 2E 06:29